=== PATIENT | female | born 1980 | race Caucasian/White ===

== ENCOUNTER 2018-08-26 17:19 | Emergency (ER) | payer SELFPAY ==
[~2018-08-26] VITALS: Wt 63.1 kg
[~2018-08-26 17:19] MED LIST: NITR-52
--- NOTE | 2018-08-26 19:29 | ERD ---
ER Documentation Chief Complaint Chief Complaint VAG BLEEDING, ONSET 6 DAYS, 6 WEEKS PG HPI 38-year-old female 6 weeks presents with history of spotting since August 20. States that she went to her clinic on August 21 for an ultrasound was performed and they said that everything looked normal. Says the bleeding is very light going through only a couple pads a day at most. Says she may have passed a clot. Denies any cramping or abdominal pain. Admits to some dizziness nauseousness, and mild headache. No vomiting or worse headache of life. Denies past medical history. Denies allergies. Denies medications. Denies surgeries. Denies alcohol, tobacco, drug use. Up to date on vaccines. ROS All systems reviewed and are negative except as per history of present illness. Medications Home Meds Reported Medications Nitrofurantoin/Nitrofuran Mac (Macrobid 100 Mg Capsule) 100 Mg Capsule 09/30/10 Allergies Allergies: Coded Allergies: No Known Drug Allergies (Verified Allergy, Mild, 09/30/10) PMhx/Soc History of Surgery: No Anesthesia Reaction: No Hx Neurological Disorder: No Hx Respiratory Disorders: No Hx Cardiac Disorders: No Hx Psychiatric Problems: No Hx Miscellaneous Medical Probl: No Hx Alcohol Use: No Hx Substance Use: No Hx Tobacco Use: No Smoking Status: Never smoker FmHx Family History: No diabetes, No coronary disease, No other Physical Exam Vitals Vital Signs Date Temp Pulse Resp B/P (MAP) Pulse Ox O2 O2 Flow FiO2 Time Delivery Rate 08/26/18 98.3 112 16 138/70 100 Room Air 21:32 (92) 08/26/18 98.2 76 20 142/63 100 17:28 (89) Physical Exam General: Well developed, well nourished. No acute distress. Head: Atraumatic. No sinus tenderness to palpation. Skin: No pallor or cyanosis noted Heart: RR w/o murmur, rubs, or gallops. Lungs: Clear to auscultation bilaterally w/o wheezes, crackles, rhonchi. Symmetric rise and fall. Equal breath sounds. Abdomen: Soft, nontender, with no rigidity or guarding noted. No masses, lesions, or ecchymoses. Normoactive bowel sounds. No McBurney's point tenderness. Patient ambulatory. No tenderness to palpation in splenic area or splenomegaly. No CVA tenderness. Psych: Normal mood and affect. Result Diagram: 08/26/181937 Results 24 hrs Laboratory Tests Test 08/26/18 19:38 08/26/18 19:45 White Blood Count 7.6 10^3/ul Red Blood Count 3.87 10^6/ul Hemoglobin 12.7 g/dl Hematocrit 37.5 % Mean Corpuscular Volume 96.9 fl Mean Corpuscular Hemoglobin 32.8 pg Mean Corpuscular Hemoglobin Concent 33.9 g/dl Red Cell Distribution Width 11.7 % Platelet Count 258 10^3/UL Mean Platelet Volume 9.2 fl Immature Granulocytes % 0.300 % Neutrophils % 56.0 % Lymphocytes % 34.0 % Monocytes % 6.8 % Eosinophils % 2.2 % Basophils % 0.7 % Nucleated Red Blood Cells % 0.0 /100WBC Immature Granulocytes # 0.020 10^3/ul Neutrophils # 4.3 10^3/ul Lymphocytes # 2.6 10^3/ul Monocytes # 0.5 10^3/ul Eosinophils # 0.2 10^3/ul Basophils # 0.1 10^3/ul Nucleated Red Blood Cells # 0.0 10^3/ul Beta HCG, Quantitative 2397.8 mIU/ml Urine Color YELLOW Urine Clarity SLIGHTLY CLOUDY Urine pH 5.0 Urine Specific [place] 1.023 Urine Ketones 1+ mg/dL Urine Nitrite NEGATIVE mg/dL Urine Bilirubin NEGATIVE mg/dL Urine Urobilinogen NEGATIVE mg/dL Urine Leukocyte Esterase 1+ Kuldeep/ul Urine Microscopic RBC 28 /HPF Urine Microscopic WBC 14 /HPF Urine Squamous Epithelial Cells MODERATE /HPF Urine Bacteria FEW /HPF Urine Mucus MANY /HPF Urine Hemoglobin 3+ mg/dL Urine Glucose NEGATIVE mg/dL Urine Total Protein 1+ mg/dl Procedures/MDM DIAGNOSTIC IMAGING REPORT Patient: SANYA ARNETT : 1980 Age: 38 Sex: F MR #: [id number] DOS: 08/26/181923 Ordering MD: CHANDLER PATRICIO Location: [facility] Room/Bed: PROCEDURE: US OB. CLINICAL INDICATION: Vaginal bleeding TECHNIQUE: Transabdominal and transvaginal views of the pelvis were obtained. COMPARISON: No prior studies are available for comparison. FINDINGS: There is a single intrauterine gestation with a CRL measuring 0.2 cm and the gestational sac measures 0.7 cm, corresponding to a gestational age of 5 weeks and 2 days. The heart tones are not yet identified. There is a heterogeneous hypoechoic fluid collection adjacent to the gestational sac, measuring 2.4 cm, consistent with subchorionic hemorrhage. The right ovary measures 2.5 x 1.3 x 2.1 cm. The left ovary measures 2.6 x 0.8 x 1.8 cm. No ovarian or adnexal mass lesion is seen. There is no free fluid. RPTAT: AA IMPRESSION: Single intrauterine with an estimated gestational age of 5 weeks and 2 days, based on ultrasound measurements. heart tones are not yet identified. Large area of subchorionic hemorrhage. Close follow-up is recommended. .Tj Abdul MD, Date Time Electronically viewed and signed by .Tj Abdul MD, on 08/26/2018 20:56 .S/ CC: CHANDLER PATRICIO [id number] ER Course: CBC, CMP, UA, , transabdominal ultrasound, Rh, hCG, type and screen. See results of ultrasound above. MDM: 38-year-old female 6 weeks presents with history of spotting since August 20. States that she went to her clinic on August 21 for an ultrasound was performed and they said that everything looked normal. Says the bleeding is very light going through only a couple pads a day at most. Says she may have passed a clot. Denies any cramping or abdominal pain. Admits to some dizziness nauseousness, and mild headache. No vomiting or worse headache of life. Due to complaint of bleeding in early labs and imaging were obtained. Ultrasound showed area of subchorionic hemorrhage which explains the spotting that the patient experienced. There were no signs of ectopic on ultrasound and patient denies any abdominal pain rendering my suspicion of ectopic very low. I asked patient if she had an OPERATIONS LABEL CLERK that she could visit in 2 days to do a repeat hCG and she stated that she would see her OPERATIONS LABEL CLERK in two days. I have low suspicion for intracranial clot or other CVA. I have low suspicion for septic or symptomatic anemia. Patient discharged with strict ER precautions. Patient advised to follow up with PMD. All questions answered at discharge. Departure Diagnosis: Primary Impression: Vaginal bleeding in patient at less than 20 weeks gestation Additional Impression: Subchorionic hemorrhage in first trimester Fetus number: single or unspecified fetus Qualified Codes: O41.8X10 - Other specified disorders of amniotic fluid and membranes, first trimester, not applicable or unspecified; O46.8X1 - Other antepartum hemorrhage, first trimester Condition: CHANDLER Holloway Aug 26, 2018 19:29
[2018-08-26 21:32] VITALS: BP 138/70; PULSE 112; RESP 16
== END 2018-08-26 21:33 | disposition home or self-care (01) ==
LOC: FTE 17:19
DX: O41.8X10 Other specified disorders of amniotic fluid and membranes, first trimester, not applicable or unspecified (principal); O46.8X1 Other antepartum hemorrhage, first trimester; Z3A.01 Less than 8 weeks gestation of pregnancy
CPT/HCPCS: 76801; 76817; 81001; 84702; 85025; 86900; 86901